=== PATIENT | female | born 1960 | race African-American/Black ===

== ENCOUNTER 2017-08-24 11:24 | Emergency (ER) | payer MEDICAID, OTHER ==
[~2017-08-24] VITALS: Ht 172.7 cm; Wt 87.0 kg
[2017-08-24] MEDS ORDERED: CEPHALEXIN 500MG CAPSULE PO ONE (12:45)
[2017-08-24] MEDS ORDERED: TETANUS, DIPHTHERIA, PERTUSSIS VAC/PF 0.5ML (>7YR OLD) IM ONE (12:45)
[2017-08-24] MEDS ORDERED: ACETAMINOPHEN 325MG TABLET PO ONE (12:45)
[2017-08-24 17:51] VITALS: BP 172/95
== END 2017-08-24 17:52 | disposition home or self-care (01) ==
LOC: ER 16:28
DX: L01.00 Impetigo, unspecified (principal); E11.9 Type 2 diabetes mellitus without complications; E78.00 Pure hypercholesterolemia, unspecified; I10 Essential (primary) hypertension; Z23 Encounter for immunization; Z59.0 Homelessness
CPT/HCPCS: 70450; 90471; 90715; 99284